=== PATIENT | female | born 1955 ===

== ENCOUNTER 2023-07-06 09:26 | Day surgery (SDC) | payer MEDICARE ==
[~2023-07-06] VITALS: Ht 157.5 cm; Wt 57.7 kg
[2023-07-06] MEDS ORDERED: Prinivil10 MG (10:40)
[2023-07-06] MEDS ORDERED: TEMA15 (10:46)
[2023-07-06] MEDS ORDERED: LISINOPRIL 40MG (10:57)
[2023-07-06 12:13] VITALS: BP 137/86
--- NOTE | 2023-07-06 12:15 | NUR ---
07/06/23 1215 Yoselin Mujica IV DC'D, CATH INTACT. PT TOLERATED WELL. COBAN/GAUZE IN PLACE
== END 2023-07-06 12:15 | disposition home or self-care (01) ==
LOC: ORSCSDS 09:26 → ORD 10:30 → ORSCSDS 10:30
DX: Z12.11 Encounter for screening for malignant neoplasm of colon (principal); Z86.010 Personal history of colon polyps; Z80.0 Family history of malignant neoplasm of digestive organs; D12.2 Benign neoplasm of ascending colon; K62.1 Rectal polyp; I10 Essential (primary) hypertension; F17.210 Nicotine dependence, cigarettes, uncomplicated; Z79.899 Other long term (current) drug therapy
CPT/HCPCS: 88305; J0461; J2001; J2250; J2405; J2704; J7120; Q9968